=== PATIENT | female | born 1960 | race African-American/Black ===

== ENCOUNTER → 2016-12-09 | Outpatient (CLI) | payer OTHER ==
--- NOTE | ~2016-12-09 | CR170 ---
[facility] A Service of [facility] RADIOLOGY TEXT RESULTS PATIENT: ELA SNIDER LOCATION: [facility] : 62 UNIT #: [id number] AGE: [address]: TORITO JUAN APRN SEX: F ORDER DR: [id number] [facility] [address] [place], [place] [address] [id number] O MR#: [id number] Acc #: [id number] NAME: ELA SNIDER : 1960 SEX: F STUDY DATE/TIME: 12/09/2016 14:55 UNIT: [facility] ROOM: STUDY DESCRIPTION: CR Knee 2 Views Rt Attending Physician: Torito Juan Referring Physician: Torito Juan Ordering Physician: Torito Juan A.P.R.N. Primary Care Physician: [facility] MEDICAL IMAGING REPORT This report is preliminary unless electronic signature is present EXAM Right knee INDICATION Right knee pain for several months. FINDINGS AP and crosstable lateral views of the right knee were obtained. A small joint effusion is present. There is minimal spurring from the medial femoral condyle. There is no fracture. IMPRESSION Very mild degenerative change with some possible spurring from the medial femoral condyle. The joint spaces are normal. There is a tiny effusion. Dictated by... Gerry Mejia M.D. THIS IS AN ELECTRONICALLY VERIFIED REPORT Gerry Mejia M.D. at 12/10/2016 9:44 AM SOM/keke TD: 12/09/2016 21:18 JOB #: [id number] MEDICAL IMAGING REPORT Page 1 of 1 COPY
== END | disposition home or self-care (01) ==
LOC: EDBD 14:25 → CRAD 14:25
DX: M25.561 Pain in right knee (principal)
CPT/HCPCS: 73560